=== PATIENT | male | born 1965 | race Hispanic/Latino ===

== ENCOUNTER 2022-11-02 16:43 | Inpatient (IN) | payer MEDICAID, SELFPAY ==
[~2022-11-02 16:43] MED LIST: Iopamidol-370 76% 500 ML 1 ML ONE
[2022-11-02 17:45] LABS: #Basophils 0.1 thou/uL (0.0-0.2); #Eosinphils 0.5 thou/uL (0.0-0.7); #Lymphocytes 1.3 thou/uL (1.20-3.40); #Monocytes 0.3 thou/uL (0.11-0.59); #Neutrophils 4.2 thou/uL (1.40-6.50); %Basophils 1.2 % (0.0-1.0); %Eosinophils 7.9 % (0.0-10.0); %Lymphocytes 19.5 % (21.0-51.0); %Monocytes 5.3 % (0.0-10.0); Hemoglobin 14.5 g/dL (14.0-18.0); Mean Corpuscular HGB CONC 33.6 g/dL (32.0-36.0); Mean Corpuscular Hemoglobin 30.3 pg (27.0-31.0); Mean Corpuscular Volume 90.3 fl (78.0-98.0); Mean Platelet Volume 9.3 fL (7.4-10.4); Platelet Count 261 10x3/uL (130-400); Red Blood Cell (RBC) Count 4.77 mill/uL (4.70-6.10); White Blood Cell (WBC) Count 6.4 10x3/uL (4.8-10.8)
[2022-11-02 18:07] LABS: ALT (SGPT) 18 U/L (8-55); AST (SGOT) 16 U/L (5-34); Albumin 2.4 g/dL (3.5-5.0); Alkaline Phosphatase 120 U/L (40-110); Anion Gap 9 mmol/L (10-20); BUN (Urea Nitrogen) 17 mg/dL (8.4-25.7); Bilirubin, Total 0.2 mg/dL (0.2-1.2); Calc. Creatinine Clearance 0 mL/min (70-130); Calcium 8.2 mg/dL (7.8-10.44); Carbon Dioxide 27 mmol/L (22-29); Chloride 101 mmol/L (98-107); Estimated GFR 35; Globulin 3.2 g/dL (2.4-3.5); Potassium 4.4 mmol/L (3.5-5.1); Protein, Total 5.6 g/dL (6.0-8.3); Sodium 133 mmol/L (136-145)
[2022-11-02 18:11] LABS: Glucose 444 mg/dL (70-105)
[2022-11-02 19:02] LABS: CKMB 7.4 ng/mL (0-6.6)
[2022-11-02 19:19] LABS: Phosphorus 3.3 mg/dL (2.3-4.7)
[2022-11-02 19:21] LABS: Magnesium 1.9 mg/dL (1.6-2.6)
[2022-11-02] MEDS ORDERED: Cefepime 2 GM VIAL ONE (19:43)
[2022-11-02] MEDS ORDERED: Aspirin Chewable 81 MG TAB ONE ×2 (19:43→19:45)
[2022-11-02] MEDS ORDERED: Furosemide 40 MG/4 ML VIAL ONE (19:43)
[2022-11-02 20:06] LABS: Actual Bicarbonate (HCO3v) 29 mEq/L (22-28); Calcium, Ionized (venous) 1.11 mmol/L (1.16-1.32); Chloride (VBG) 102 mmol/L (98-106); Potassium (VBG) 4.82 mmol/L (3.70-5.30); Sodium 134.5 mmol/L (133-146); pH (venous) 7.33 (7.32-7.43)
[2022-11-02] MEDS ORDERED: Vancomycin 1 GM/200 ML (FROZEN) BAG ONE (20:23)
[2022-11-02] MEDS ORDERED: Ondansetron PF 4 MG/2 ML Vial IVP PRN (21:04)
[2022-11-02] MEDS ORDERED: Ondansetron ODT 4 MG TAB PO PRN (21:04)
[2022-11-02] MEDS ORDERED: Dextrose 50% Abboject 50 ML SYRINGE SLOW IVP PRN (21:04)
[2022-11-02] MEDS ORDERED: Dextrose 5% in Water 1,000 ML IV PRN (21:04)
[2022-11-02 21:10] LABS: Bilirubin Negative (Negative); Blood, Urine 1+ (Negative); Clarity Clear (Clear); Glucose, Urine (Dipstick) Greater than 1000 mg/dL (Negative); Ketone, Urine Negative (Negative); Leukocyte Negative Leu/uL (Negative); Nitrite Negative (Negative); Protein, Urine (Dipstick) 300 mg/dL (Neg-Trace); RBC/HPF 0-3 HPF (0-3); Specific Gravity, Urine 1.015 (1.002-1.036); Squamous Epithelial 0-3 HPF (0-3); Urobilinogen Normal mg/dL (Less than 2); WBC/HPF 0-3 HPF (0-3); pH, Urine 6.5 (5.0-9.0)
[2022-11-02 21:11] LABS: Bacteria/HPF 1+ HPF (None Seen)
[2022-11-02] MEDS ORDERED: Furosemide 20 MG/2 ML VIAL SLOW IVP SCH (21:30)
[2022-11-02] MEDS ORDERED: Insulin Regular 300 UNITS/3 ML VIAL SC SCH (21:45)
[2022-11-03 00:34] VITALS: BMI 30.4
[2022-11-03] MEDS: Vancomycin HCl 750 MG in Sodium Chloride 0.9% 250 ML 250 ML IVPB SCH (01:06)
[2022-11-03 01:13] LABS: Troponin I 0.381 ng/mL (< 0.028)
[2022-11-03] MEDS ORDERED: NIFEdipine XL 60 MG TAB PO SCH ×2 (02:15→09:00)
[2022-11-03 05:03] LABS: #Eosinphils 0.7 thou/uL (0.0-0.7); #Lymphocytes 1.8 thou/uL (1.20-3.40); #Monocytes 0.4 thou/uL (0.11-0.59); #Neutrophils 3.8 thou/uL (1.40-6.50); %Basophils 0.6 % (0.0-1.0); %Eosinophils 10.4 % (0.0-10.0); %Lymphocytes 26.3 % (21.0-51.0); %Monocytes 6.2 % (0.0-10.0); %Neutrophils 56.4 % (42.0-75.0); Hemoglobin 12.4 g/dL (14.0-18.0); Mean Corpuscular HGB CONC 33.1 g/dL (32.0-36.0); Mean Corpuscular Volume 90.6 fl (78.0-98.0); Mean Platelet Volume 9.2 fL (7.4-10.4); Platelet Count 263 10x3/uL (130-400); RBC Distribution Width 11.9 % (11.5-14.5); Red Blood Cell (RBC) Count 4.13 mill/uL (4.70-6.10); White Blood Cell (WBC) Count 6.8 10x3/uL (4.8-10.8)
[2022-11-03 05:08] LABS: Hemoglobin A1c 12.5 % (4.0-6.0)
[2022-11-03 05:19] LABS: ALT (SGPT) 16 U/L (8-55); AST (SGOT) 12 U/L (5-34); Albumin 2.1 g/dL (3.5-5.0); Alkaline Phosphatase 93 U/L (40-110); Anion Gap 10 mmol/L (10-20); BUN (Urea Nitrogen) 18 mg/dL (8.4-25.7); Bilirubin, Total 0.2 mg/dL (0.2-1.2); Calc. Creatinine Clearance 47 mL/min (70-130); Carbon Dioxide 26 mmol/L (22-29); Chloride 107 mmol/L (98-107); Estimated GFR 38; Globulin 2.8 g/dL (2.4-3.5); Glucose 120 mg/dL (70-105); Protein, Total 4.9 g/dL (6.0-8.3); Sodium 139 mmol/L (136-145)
[2022-11-03] MEDS: Furosemide 40 MG/4 ML VIAL SLOW IVP SCH ×2 (05:35→16:59)
[2022-11-03 05:48] LABS: Troponin I 0.404 ng/mL (< 0.028)
[2022-11-03] MEDS: Cefepime 1 GM in Sodium Chloride 0.9% 100 ML IVPB SCH ×2 (10:07→20:54)
[2022-11-03] MEDS: Heparin 5,000 UNITS/ML VIAL SC SCH ×2 (10:08→20:58)
[2022-11-03] MEDS: HumaLOG 300 UNITS/3 ML VIAL SC PRN ×2 (18:28→20:57)
[2022-11-03] MEDS: hydrALAZINE 25 MG TAB PO SCH (20:55)
[2022-11-03] MEDS: Atorvastatin Calcium 40 MG TAB PO SCH (20:55)
[2022-11-03] MEDS: Insulin Glargine 30 UNITS/0.3 ML VIAL SC SCH (20:56)
[2022-11-03] MEDS ORDERED: Insulin Glargine 30 UNITS/0.3 ML VIAL SC SCH (21:00)
[2022-11-04] MEDS: Vancomycin HCl 750 MG in Sodium Chloride 0.9% 250 ML 250 ML IVPB SCH (00:50)
[2022-11-04 03:58] LABS: #Basophils 0.1 thou/uL (0.0-0.2); #Eosinphils 0.9 thou/uL (0.0-0.7); #Monocytes 0.5 thou/uL (0.11-0.59); %Basophils 1.1 % (0.0-1.0); %Eosinophils 11.8 % (0.0-10.0); %Lymphocytes 26.6 % (21.0-51.0); %Monocytes 6.6 % (0.0-10.0); %Neutrophils 53.9 % (42.0-75.0); Hemoglobin 12.9 g/dL (14.0-18.0); Mean Corpuscular HGB CONC 33.6 g/dL (32.0-36.0); Mean Corpuscular Hemoglobin 29.7 pg (27.0-31.0); Mean Corpuscular Volume 88.6 fl (78.0-98.0); Mean Platelet Volume 9.3 fL (7.4-10.4); Platelet Count 245 10x3/uL (130-400); RBC Distribution Width 11.8 % (11.5-14.5); Red Blood Cell (RBC) Count 4.32 mill/uL (4.70-6.10); White Blood Cell (WBC) Count 7.3 10x3/uL (4.8-10.8)
[2022-11-04 04:24] LABS: Anion Gap 13 mmol/L (10-20); BUN (Urea Nitrogen) 34 mg/dL (8.4-25.7); Calc. Creatinine Clearance 36 mL/min (70-130); Calcium 8.2 mg/dL (7.8-10.44); Carbon Dioxide 23 mmol/L (22-29); Chloride 104 mmol/L (98-107); Estimated GFR 28; Glucose 79 mg/dL (70-105); Sodium 136 mmol/L (136-145)
[2022-11-04] MEDS ORDERED: Furosemide 40 MG/4 ML VIAL SLOW IVP SCH (06:00)
[2022-11-04] MEDS: hydrALAZINE 25 MG TAB PO SCH ×3 (09:48→21:11)
[2022-11-04] MEDS: Cefepime 1 GM in Sodium Chloride 0.9% 100 ML IVPB SCH ×2 (09:49→21:36)
[2022-11-04] MEDS: Aspirin 81 mg Enteric Coated Tablet PO SCH (11:20)
[2022-11-04] MEDS: Heparin 5,000 UNITS/ML VIAL SC SCH ×2 (11:20→21:10)
[2022-11-04] MEDS ORDERED: Sodium Chloride 0.45% 1,000 ML IV SCH (13:15)
[2022-11-04] MEDS ORDERED: Sodium Chloride 0.45% 500 ML IV SCH (13:15)
[2022-11-04] MEDS ORDERED: Dexmedetomidine 200 MCG/2 ML VIAL ONE (14:49)
[2022-11-04] MEDS ORDERED: fentaNYL PF 100 MCG/2 ML SYRINGE ONE (14:49)
[2022-11-04] MEDS ORDERED: Ketamine 50 MG/ML (10ML VIAL) ONE (15:08)
[2022-11-04] MEDS ORDERED: Lidocaine 1% PF 5 ML VIAL ONE (15:24)
[2022-11-04] MEDS ORDERED: Midazolam HCl 2 mg/2 ml Vial ONE (15:36)
[2022-11-04] MEDS: Acetaminophen 325 MG TAB PO PRN (21:09)
[2022-11-04] MEDS: Atorvastatin Calcium 40 MG TAB PO SCH (21:10)
[2022-11-04] MEDS: Insulin Glargine 30 UNITS/0.3 ML VIAL SC SCH (21:11)
[2022-11-04] MEDS ORDERED: Morphine 2 MG/ML VIAL SLOW IVP PRN (23:19)
[2022-11-05] MEDS: HumaLOG 300 UNITS/3 ML VIAL SC PRN ×3 (00:02→18:02)
[2022-11-05 00:45] LABS: Vancomycin, Trough 15.2 ug/mL
[2022-11-05] MEDS: Vancomycin HCl 750 MG in Sodium Chloride 0.9% 250 ML 250 ML IVPB SCH (02:05)
[2022-11-05] MEDS: Morphine 4 MG/ML VIAL SLOW IVP PRN (04:16)
[2022-11-05 04:47] LABS: #Eosinphils 0.7 thou/uL (0.0-0.7); #Lymphocytes 1.6 thou/uL (1.20-3.40); #Monocytes 0.4 thou/uL (0.11-0.59); #Neutrophils 3.2 thou/uL (1.40-6.50); %Basophils 0.6 % (0.0-1.0); %Eosinophils 11.2 % (0.0-10.0); %Lymphocytes 27.6 % (21.0-51.0); %Monocytes 6.4 % (0.0-10.0); %Neutrophils 54.2 % (42.0-75.0); Hemoglobin 12.4 g/dL (14.0-18.0); Mean Corpuscular HGB CONC 33.6 g/dL (32.0-36.0); Mean Corpuscular Volume 89.3 fl (78.0-98.0); Mean Platelet Volume 9.4 fL (7.4-10.4); Platelet Count 235 10x3/uL (130-400); RBC Distribution Width 11.7 % (11.5-14.5); Red Blood Cell (RBC) Count 4.15 mill/uL (4.70-6.10); White Blood Cell (WBC) Count 5.9 10x3/uL (4.8-10.8)
[2022-11-05 05:10] LABS: Anion Gap 10 mmol/L (10-20); BUN (Urea Nitrogen) 31 mg/dL (8.4-25.7); Calc. Creatinine Clearance 37 mL/min (70-130); Calcium 8.2 mg/dL (7.8-10.44); Carbon Dioxide 28 mmol/L (22-29); Chloride 103 mmol/L (98-107); Estimated GFR 28; Glucose 192 mg/dL (70-105); Potassium 3.7 mmol/L (3.5-5.1); Sodium 137 mmol/L (136-145)
[2022-11-05] MEDS: Heparin 5,000 UNITS/ML VIAL SC SCH ×2 (09:27→20:36)
[2022-11-05] MEDS: Aspirin 81 mg Enteric Coated Tablet PO SCH (09:27)
[2022-11-05] MEDS: hydrALAZINE 25 MG TAB PO SCH ×3 (09:27→20:33)
[2022-11-05] MEDS: Cefepime 1 GM in Sodium Chloride 0.9% 100 ML IVPB SCH (09:28)
[2022-11-05] MEDS ORDERED: Albumin 25% 25 GM/100 ML BOT IVPB SCH (16:15)
[2022-11-05] MEDS ORDERED: hydrALAZINE 25 MG TAB PO SCH (19:37)
[2022-11-05] MEDS: Acetaminophen 325 MG TAB PO PRN (20:34)
[2022-11-05] MEDS: Doxycycline 100 MG CAP PO SCH (20:35)
[2022-11-05] MEDS: Insulin Glargine 30 UNITS/0.3 ML VIAL SC SCH (20:35)
[2022-11-05] MEDS: Isosorbide Dinitrate 5 MG TAB PO SCH (20:35)
[2022-11-05] MEDS: Atorvastatin Calcium 40 MG TAB PO SCH (20:35)
[2022-11-05] MEDS: Rifampin 300 MG CAP PO SCH (20:48)
[2022-11-05] MEDS ORDERED: hydrALAZINE 10 MG TAB PO SCH (21:00)
[2022-11-06 00:23] LABS: Vancomycin, Trough 14.5 ug/mL
[2022-11-06] MEDS: Vancomycin HCl 750 MG in Sodium Chloride 0.9% 250 ML 250 ML IVPB SCH (02:41)
[2022-11-06] MEDS: Morphine 4 MG/ML VIAL SLOW IVP PRN (03:41)
[2022-11-06 05:17] LABS: #Eosinphils 0.7 thou/uL (0.0-0.7); #Lymphocytes 1.7 thou/uL (1.20-3.40); #Monocytes 0.5 thou/uL (0.11-0.59); #Neutrophils 3.1 thou/uL (1.40-6.50); %Basophils 0.7 % (0.0-1.0); %Eosinophils 11.8 % (0.0-10.0); %Lymphocytes 28.5 % (21.0-51.0); %Monocytes 7.5 % (0.0-10.0); %Neutrophils 51.5 % (42.0-75.0); Hemoglobin 11.6 g/dL (14.0-18.0); Mean Corpuscular HGB CONC 32.6 g/dL (32.0-36.0); Mean Corpuscular Volume 88.9 fl (78.0-98.0); Mean Platelet Volume 9.5 fL (7.4-10.4); Platelet Count 210 10x3/uL (130-400); RBC Distribution Width 11.7 % (11.5-14.5); Red Blood Cell (RBC) Count 3.99 mill/uL (4.70-6.10)
[2022-11-06 05:32] LABS: Anion Gap 9 mmol/L (10-20); BUN (Urea Nitrogen) 41 mg/dL (8.4-25.7); Calc. Creatinine Clearance 37 mL/min (70-130); Calcium 8.5 mg/dL (7.8-10.44); Carbon Dioxide 29 mmol/L (22-29); Chloride 104 mmol/L (98-107); Estimated GFR 28; Glucose 112 mg/dL (70-105); Potassium 3.9 mmol/L (3.5-5.1); Sodium 138 mmol/L (136-145)
[2022-11-06] MEDS ORDERED: Furosemide 40 MG/4 ML VIAL SLOW IVP SCH (09:00)
[2022-11-06] MEDS: Isosorbide Dinitrate 5 MG TAB PO SCH ×2 (10:13→22:26)
[2022-11-06] MEDS: Doxycycline 100 MG CAP PO SCH ×2 (10:13→22:24)
[2022-11-06] MEDS: Aspirin 81 mg Enteric Coated Tablet PO SCH (10:13)
[2022-11-06] MEDS: Carvedilol 3.125 MG TAB PO SCH ×2 (10:14→17:41)
[2022-11-06] MEDS: Heparin 5,000 UNITS/ML VIAL SC SCH ×2 (10:14→22:24)
[2022-11-06] MEDS: hydrALAZINE 25 MG TAB PO SCH ×3 (10:14→22:25)
[2022-11-06] MEDS: Furosemide 40 MG/4 ML VIAL SLOW IVP SCH (14:21)
[2022-11-06] MEDS: HumaLOG 300 UNITS/3 ML VIAL SC PRN ×2 (17:42→22:29)
[2022-11-06] MEDS: Atorvastatin Calcium 40 MG TAB PO SCH (22:24)
[2022-11-06] MEDS: Insulin Glargine 30 UNITS/0.3 ML VIAL SC SCH (22:25)
[2022-11-06] MEDS: Rifampin 300 MG CAP PO SCH (22:32)
[2022-11-07] MEDS: HumaLOG 300 UNITS/3 ML VIAL SC PRN ×3 (00:45→17:33)
[2022-11-07 04:46] LABS: #Eosinphils 0.8 thou/uL (0.0-0.7); #Lymphocytes 1.8 thou/uL (1.20-3.40); #Monocytes 0.4 thou/uL (0.11-0.59); %Basophils 0.6 % (0.0-1.0); %Eosinophils 12.9 % (0.0-10.0); %Lymphocytes 29.7 % (21.0-51.0); %Monocytes 6.5 % (0.0-10.0); %Neutrophils 50.3 % (42.0-75.0); Mean Corpuscular HGB CONC 33.8 g/dL (32.0-36.0); Mean Corpuscular Hemoglobin 30.1 pg (27.0-31.0); Mean Corpuscular Volume 89.1 fl (78.0-98.0); Mean Platelet Volume 9.7 fL (7.4-10.4); Platelet Count 216 10x3/uL (130-400); RBC Distribution Width 11.8 % (11.5-14.5); Red Blood Cell (RBC) Count 3.99 mill/uL (4.70-6.10)
[2022-11-07 05:14] LABS: Anion Gap 11 mmol/L (10-20); BUN (Urea Nitrogen) 40 mg/dL (8.4-25.7); Calc. Creatinine Clearance 38 mL/min (70-130); Calcium 8.6 mg/dL (7.8-10.44); Carbon Dioxide 28 mmol/L (22-29); Chloride 102 mmol/L (98-107); Estimated GFR 29; Glucose 118 mg/dL (70-105); Potassium 3.9 mmol/L (3.5-5.1); Sodium 137 mmol/L (136-145)
[2022-11-07] MEDS: Furosemide 40 MG/4 ML VIAL SLOW IVP SCH ×2 (06:08→13:35)
[2022-11-07] MEDS: Acetaminophen 325 MG TAB PO PRN ×2 (06:09→13:10)
[2022-11-07] MEDS: Heparin 5,000 UNITS/ML VIAL SC SCH ×2 (08:39→20:39)
[2022-11-07] MEDS: Isosorbide Dinitrate 5 MG TAB PO SCH ×2 (08:39→20:39)
[2022-11-07] MEDS: Aspirin 81 mg Enteric Coated Tablet PO SCH (08:39)
[2022-11-07] MEDS: Doxycycline 100 MG CAP PO SCH ×2 (08:40→20:40)
[2022-11-07] MEDS: hydrALAZINE 25 MG TAB PO SCH ×2 (08:40→20:40)
[2022-11-07] MEDS: Carvedilol 6.25 MG TAB PO SCH ×2 (08:41→16:07)
[2022-11-07] MEDS: Rifampin 300 MG CAP PO SCH (20:39)
[2022-11-07] MEDS: Atorvastatin Calcium 40 MG TAB PO SCH (20:40)
[2022-11-07] MEDS: Insulin Glargine 30 UNITS/0.3 ML VIAL SC SCH (20:40)
[2022-11-08 05:59] LABS: Anion Gap 11 mmol/L (10-20); BUN (Urea Nitrogen) 45 mg/dL (8.4-25.7); Calc. Creatinine Clearance 39 mL/min (70-130); Calcium 8.5 mg/dL (7.8-10.44); Carbon Dioxide 29 mmol/L (22-29); Chloride 102 mmol/L (98-107); Estimated GFR 30; Glucose 191 mg/dL (70-105); Potassium 3.9 mmol/L (3.5-5.1); Sodium 138 mmol/L (136-145)
[2022-11-08] MEDS: HumaLOG 300 UNITS/3 ML VIAL SC PRN ×3 (06:22→17:43)
[2022-11-08] MEDS: Furosemide 40 MG/4 ML VIAL SLOW IVP SCH ×2 (06:22→14:59)
[2022-11-08] MEDS: Heparin 5,000 UNITS/ML VIAL SC SCH ×2 (09:22→20:49)
[2022-11-08] MEDS: Carvedilol 6.25 MG TAB PO SCH ×2 (09:23→17:43)
[2022-11-08] MEDS: Isosorbide Dinitrate 5 MG TAB PO SCH ×2 (09:23→20:48)
[2022-11-08] MEDS: Aspirin 81 mg Enteric Coated Tablet PO SCH (09:23)
[2022-11-08] MEDS: Doxycycline 100 MG CAP PO SCH ×2 (09:24→20:48)
[2022-11-08] MEDS: hydrALAZINE 25 MG TAB PO SCH ×3 (09:24→20:50)
[2022-11-08] MEDS: Morphine 4 MG/ML VIAL SLOW IVP PRN (14:59)
[2022-11-08] MEDS: Atorvastatin Calcium 40 MG TAB PO SCH (20:48)
[2022-11-08] MEDS: Rifampin 300 MG CAP PO SCH (20:49)
[2022-11-08] MEDS: Insulin Glargine 30 UNITS/0.3 ML VIAL SC SCH (20:49)
[2022-11-09 04:46] LABS: Anion Gap 11 mmol/L (10-20); BUN (Urea Nitrogen) 46 mg/dL (8.4-25.7); Calc. Creatinine Clearance 42 mL/min (70-130); Calcium 8.5 mg/dL (7.8-10.44); Carbon Dioxide 30 mmol/L (22-29); Chloride 101 mmol/L (98-107); Estimated GFR 33; Glucose 95 mg/dL (70-105); Potassium 3.7 mmol/L (3.5-5.1); Sodium 138 mmol/L (136-145)
[2022-11-09] MEDS: Furosemide 40 MG/4 ML VIAL SLOW IVP SCH ×2 (06:16→16:09)
[2022-11-09] MEDS ORDERED: hydrALAZINE 25 MG TAB PO SCH (07:47)
[2022-11-09] MEDS: Heparin 5,000 UNITS/ML VIAL SC SCH ×2 (08:13→22:05)
[2022-11-09] MEDS: Carvedilol 6.25 MG TAB PO SCH ×2 (08:14→16:10)
[2022-11-09] MEDS: Doxycycline 100 MG CAP PO SCH ×2 (08:14→22:02)
[2022-11-09] MEDS: hydrALAZINE 10 MG TAB PO SCH ×3 (08:14→22:03)
[2022-11-09] MEDS: Aspirin 81 mg Enteric Coated Tablet PO SCH (08:14)
[2022-11-09] MEDS: Isosorbide Dinitrate 5 MG TAB PO SCH ×2 (08:14→22:03)
[2022-11-09] MEDS: HumaLOG 300 UNITS/3 ML VIAL SC PRN ×2 (11:28→22:07)
[2022-11-09] MEDS: Rifampin 300 MG CAP PO SCH (22:02)
[2022-11-09] MEDS: Atorvastatin Calcium 40 MG TAB PO SCH (22:03)
[2022-11-09] MEDS: Insulin Glargine 30 UNITS/0.3 ML VIAL SC SCH (22:05)
[2022-11-10 05:24] LABS: Anion Gap 12 mmol/L (10-20); BUN (Urea Nitrogen) 55 mg/dL (8.4-25.7); Calc. Creatinine Clearance 42 mL/min (70-130); Calcium 8.2 mg/dL (7.8-10.44); Carbon Dioxide 29 mmol/L (22-29); Chloride 99 mmol/L (98-107); Estimated GFR 33; Glucose 136 mg/dL (70-105); Potassium 3.7 mmol/L (3.5-5.1); Sodium 136 mmol/L (136-145)
[2022-11-10] MEDS: Furosemide 40 MG/4 ML VIAL SLOW IVP SCH ×2 (06:12→14:52)
[2022-11-10] MEDS: Heparin 5,000 UNITS/ML VIAL SC SCH ×2 (08:41→20:15)
[2022-11-10] MEDS: Aspirin 81 mg Enteric Coated Tablet PO SCH (08:42)
[2022-11-10] MEDS: Isosorbide Dinitrate 5 MG TAB PO SCH ×2 (08:42→20:20)
[2022-11-10] MEDS: Carvedilol 6.25 MG TAB PO SCH ×3 (08:43→17:35)
[2022-11-10] MEDS: hydrALAZINE 10 MG TAB PO SCH ×3 (08:43→20:14)
[2022-11-10] MEDS: Acetaminophen 325 MG TAB PO PRN (08:43)
[2022-11-10] MEDS: Doxycycline 100 MG CAP PO SCH ×2 (08:44→20:15)
[2022-11-10] MEDS: HumaLOG 300 UNITS/3 ML VIAL SC PRN (17:36)
[2022-11-10] MEDS: Rifampin 300 MG CAP PO SCH (20:13)
[2022-11-10] MEDS: Atorvastatin Calcium 40 MG TAB PO SCH (20:15)
[2022-11-10] MEDS: Insulin Glargine 30 UNITS/0.3 ML VIAL SC SCH (20:21)
[2022-11-11 04:54] LABS: Anion Gap 12 mmol/L (10-20); BUN (Urea Nitrogen) 61 mg/dL (8.4-25.7); Calc. Creatinine Clearance 37 mL/min (70-130); Calcium 7.9 mg/dL (7.8-10.44); Carbon Dioxide 27 mmol/L (22-29); Chloride 100 mmol/L (98-107); Estimated GFR 31; Glucose 314 mg/dL (70-105); Potassium 4.2 mmol/L (3.5-5.1); Sodium 135 mmol/L (136-145)
[2022-11-11] MEDS: Acetaminophen 325 MG TAB PO PRN (05:53)
[2022-11-11] MEDS: Furosemide 40 MG/4 ML VIAL SLOW IVP SCH (05:54)
[2022-11-11] MEDS: HumaLOG 300 UNITS/3 ML VIAL SC PRN (05:58)
[2022-11-11] MEDS: Heparin 5,000 UNITS/ML VIAL SC SCH (10:24)
[2022-11-11] MEDS: Isosorbide Dinitrate 5 MG TAB PO SCH (10:25)
[2022-11-11] MEDS: Aspirin 81 mg Enteric Coated Tablet PO SCH (10:25)
[2022-11-11] MEDS: Doxycycline 100 MG CAP PO SCH (10:25)
[2022-11-11] MEDS: hydrALAZINE 10 MG TAB PO SCH (10:25)
[2022-11-11] MEDS: Carvedilol 6.25 MG TAB PO SCH (10:45)
[2022-11-11 12:42] VITALS: BP 124/60; TEMP 98.1
[2022-11-11] MEDS ORDERED: Furosemide 20 MG/2 ML VIAL SLOW IVP SCH (14:00)
== END 2022-11-11 14:42 | disposition home or self-care (01) | DRG 853 ==
LOC: ERS 16:43 → 2NO 20:12
PROVIDERS: ADMIT Internal Medicine; ATTEND Internal Medicine
PROC: 3E03329 Introduction of Other Anti-infective into Peripheral Vein, Percutaneous Approach (ICD-10-PCS; 2022-11-02)
PROC: 0HBMXZZ Excision of Right Foot Skin, External Approach (ICD-10-PCS; principal; 2022-11-04)
PROC: 0Y6T0Z1 Detachment at Right 3rd Toe, High, Open Approach (ICD-10-PCS; 2022-11-04)
PROC: 30233J1 Transfusion of Nonautologous Serum Albumin into Peripheral Vein, Percutaneous Approach (ICD-10-PCS; 2022-11-05)
DX: A41.81 Sepsis due to Enterococcus (principal); I21.A1 Myocardial infarction type 2; J96.01 Acute respiratory failure with hypoxia; I50.43 Acute on chronic combined systolic (congestive) and diastolic (congestive) heart failure; I13.0 Hypertensive heart and chronic kidney disease with heart failure and stage 1 through stage 4 chronic kidney disease, or unspecified chronic kidney disease; E87.1 Hypo-osmolality and hyponatremia; M86.8X7 Other osteomyelitis, ankle and foot; N17.9 Acute kidney failure, unspecified; N39.0 Urinary tract infection, site not specified; N18.4 Chronic kidney disease, stage 4 (severe); M86.671 Other chronic osteomyelitis, right ankle and foot; I42.0 Dilated cardiomyopathy; E11.65 Type 2 diabetes mellitus with hyperglycemia; E11.69 Type 2 diabetes mellitus with other specified complication; E11.22 Type 2 diabetes mellitus with diabetic chronic kidney disease; E11.51 Type 2 diabetes mellitus with diabetic peripheral angiopathy without gangrene; K43.2 Incisional hernia without obstruction or gangrene; I27.20 Pulmonary hypertension, unspecified; Z89.421 Acquired absence of other right toe(s); Z89.512 Acquired absence of left leg below knee; Z93.3 Colostomy status; Z91.14 Patient's other noncompliance with medication regimen; Z79.899 Other long term (current) drug therapy; Z20.822 Contact with and (suspected) exposure to COVID-19; I08.1 Rheumatic disorders of both mitral and tricuspid valves
CPT/HCPCS: 36415; 36416; 71045; 71275; 76870; 80048; 80053; 80202; 81003; 81015; 82010; 82553; 82805; 83036; 83605; 83735; 83880; 84100; 84484; 85025; 85379; 87040; 87077; 87086; 87186; 87811; 88305; 88311; 93005; 93306; 93976; 96365; 96375; 97139; J0692; J1644; J1815; J1940; J2250; J2270; J2272; J3370; J3370-JW; J3490; J7050; P9047; Q9967; U0003; U0005